=== PATIENT | female | born 1995 | race Caucasian/White ===

== ENCOUNTER 2017-04-05 13:54 | Emergency (ER) | payer MEDICAID ==
[~2017-04-05 13:54] MED LIST: IND20 PO; METHIMAZOLE10 MG PO; TAPAZOLE10 MG PO
[2017-04-05 16:48] VITALS: BP 117/89
== END 2017-04-05 16:48 | disposition home or self-care (01) ==
LOC: ED 13:54
DX: S29.012A Strain of muscle and tendon of back wall of thorax, initial encounter (principal); X58.XXXA Exposure to other specified factors, initial encounter; Y93.9 Activity, unspecified; Y92.89 Other specified places as the place of occurrence of the external cause; Y99.8 Other external cause status

== ENCOUNTER 2017-06-05 22:09 | Emergency (ER) | payer MEDICAID ==
[~2017-06-05] VITALS: Ht 160 cm; Wt 55.8 kg
[2017-06-05 22:15] VITALS: BP 122/65; Ht 160 cm; Wt 55.8 kg
== END 2017-06-05 22:55 | disposition home or self-care (01) ==
LOC: ED 22:09
DX: E05.90 Thyrotoxicosis, unspecified without thyrotoxic crisis or storm (principal); Z76.0 Encounter for issue of repeat prescription

== ENCOUNTER 2017-11-22 23:17 | Emergency (ER) | payer MEDICAID ==
[~2017-11-22] VITALS: Ht 160 cm; Wt 58.0 kg
[2017-11-22 23:18] VITALS: Ht 160 cm; Wt 58.0 kg
[2017-11-22 23:50] VITALS: BP 130/76
== END 2017-11-22 23:50 | disposition home or self-care (01) ==
LOC: ED 23:17
DX: M26.601 Right temporomandibular joint disorder, unspecified (principal); K12.0 Recurrent oral aphthae; E07.9 Disorder of thyroid, unspecified

== ENCOUNTER 2017-12-06 23:42 | Emergency (ER) | payer MEDICAID ==
[~2017-12-06] VITALS: Ht 160 cm; Wt 57.2 kg
[2017-12-06 23:57] VITALS: BP 132/73
== END 2017-12-07 02:38 | disposition left against medical advice (07) ==
LOC: ED 23:42
DX: Z53.21 Procedure and treatment not carried out due to patient leaving prior to being seen by health care provider (principal)

== ENCOUNTER 2018-07-15 17:52 | Emergency (ER) | payer MEDICAID ==
[~2018-07-15] VITALS: Ht 160 cm; Wt 54.1 kg
[2018-07-15 18:01] VITALS: Ht 160 cm; Wt 54.1 kg
[2018-07-15 19:34] LABS: BASOPHIL % 0.4 % (0-2); PLATELET COUNT 204 x10^3mcL (130-400); RED CELL DISTRIBUTION WIDTH 13.6 % (11.5-14.5)
[2018-07-15 19:51] LABS: CALCIUM 8.6 mg/dL (8.5-10.1); CARBON DIOXIDE 26.8 mmol/L (21-32); CHLORIDE SERUM 103 mmol/L (98-107); CREATININE SERUM 0.4 mg/dL (0.6-1.0); GFR1 > 60 mL/min; GLUCOSE SERUM 98 mg/dL (74-106); POTASSIUM SERUM 3.9 mmol/L (3.5-5.1); SODIUM SERUM 138 mmol/L (136-145)
[2018-07-15 19:54] LABS: ALBUMIN 3.4 g/dL (3.4-5.0); ALKALINE PHOSPHATASE 142 U/L (46-116); ALT/SGPT 48 U/L (14-59); AMYLASE 45 U/L (25-115); AST/SGOT 23 U/L (15-37); LIPASE 75 IU/L (73-393); TOTAL PROTEIN, SERUM 7.8 g/dL (6.4-8.2)
[2018-07-15 20:32] VITALS: BP 116/69
== END 2018-07-15 20:32 | disposition home or self-care (01) ==
LOC: ED 17:52
PROVIDERS: Emergency Medicine
DX: A08.4 Viral intestinal infection, unspecified (principal); E05.90 Thyrotoxicosis, unspecified without thyrotoxic crisis or storm; R51 Headache
CPT/HCPCS: J1885; J7030

== ENCOUNTER 2018-08-02 13:26 | Emergency (ER) | payer MEDICAID ==
[~2018-08-02] VITALS: Ht 160 cm; Wt 53.5 kg
[2018-08-02 13:28] VITALS: Ht 160 cm; Wt 53.5 kg
[2018-08-02 15:32] VITALS: BP 109/57
== END 2018-08-02 15:32 | disposition home or self-care (01) ==
LOC: ED 13:26
DX: J02.9 Acute pharyngitis, unspecified (principal); Z86.39 Personal history of other endocrine, nutritional and metabolic disease
CPT/HCPCS: 87804; J7030

== ENCOUNTER 2018-08-08 15:54 | Emergency (ER) | payer MEDICAID ==
[~2018-08-08] VITALS: Ht 160 cm; Wt 54.4 kg
[2018-08-08 16:08] VITALS: BP 137/75; Ht 160 cm; Wt 54.4 kg
== END 2018-08-08 16:44 | disposition home or self-care (01) ==
LOC: ED 15:54
DX: H10.32 Unspecified acute conjunctivitis, left eye (principal); E05.90 Thyrotoxicosis, unspecified without thyrotoxic crisis or storm

== ENCOUNTER 2018-08-23 18:57 | Emergency (ER) | payer MEDICAID ==
[~2018-08-23] VITALS: Ht 160 cm; Wt 54.0 kg
[2018-08-23 19:21] VITALS: Ht 160 cm; Wt 54.0 kg
[2018-08-23 21:44] LABS: BASOPHIL % 0.3 % (0-2); PLATELET COUNT 307 x10^3mcL (130-400); RED CELL DISTRIBUTION WIDTH 13.6 % (11.5-14.5)
[2018-08-23 21:51] LABS: CALCIUM 9.8 mg/dL (8.5-10.1); CARBON DIOXIDE 26.8 mmol/L (21-32); CHLORIDE SERUM 100 mmol/L (98-107); CREATININE SERUM 0.5 mg/dL (0.6-1.0); GFR1 > 60 mL/min; GLUCOSE SERUM 111 mg/dL (74-106); POTASSIUM SERUM 3.9 mmol/L (3.5-5.1); SODIUM SERUM 137 mmol/L (136-145)
[2018-08-23 21:56] LABS: ALBUMIN 3.6 g/dL (3.4-5.0); ALKALINE PHOSPHATASE 151 U/L (46-116); ALT/SGPT 45 U/L (14-59); AST/SGOT 25 U/L (15-37); BILIRUBIN TOTAL 0.6 mg/dL (0.20-1.00); C REACTIVE PROTEIN 0.6 mg/dL (<=0.9); LIPASE 73 IU/L (73-393)
[2018-08-23 21:57] LABS: TOTAL PROTEIN, SERUM 8.6 g/dL (6.4-8.2)
[2018-08-23 23:24] VITALS: BP 106/53
== END 2018-08-23 23:24 | disposition home or self-care (01) ==
LOC: ED 18:57
PROVIDERS: Emergency Medicine
DX: N39.0 Urinary tract infection, site not specified (principal); E05.90 Thyrotoxicosis, unspecified without thyrotoxic crisis or storm
CPT/HCPCS: J0696; J1885; J2405; J7030